=== PATIENT | female | born 1985 | race African-American/Black ===

== ENCOUNTER 2022-04-16 18:37 | Emergency (ER) | payer OTHER ==
[2022-04-16] MEDS ORDERED: KETOROLAC 30 MG/ML VIAL IM STA (19:05)
--- NOTE | 2022-04-16 19:05 | ED Physician Documentation ---
History of Present Illness - Stated complaint Stated Complaint: BACK & RIB PX - Chief complaint Chief Complaint: Back Pain - Additonal information Additional information: 36-year-old female presents emergency department for evaluation of 2 days of left flank and CVA pain. No history of similar in the past. No fevers dysuria urgency or frequency. No hematuria. Denies possibility of . She does have a history of low back pain but this feels different. She has had no falls or trauma, rash or fevers. Patient has taken Tylenol and Motrin without relief of symptoms. Review of Systems Constitutional: denies: Fever, Chills Eyes: reports: Reviewed and negative Nose: reports: Reviewed and negative Throat: reports: Reviewed and negative Cardiac: reports: Reviewed and negative GI: reports: Reviewed and negative : reports: Reviewed and negative Skin: reports: Reviewed and negative Musculoskeletal: reports: Back pain PD PAST MEDICAL HISTORY - Present Medications Home Medications: Ambulatory Orders Medication Instructions Recorded Confirmed methocarbamoL [Methocarbamol] 750 mg PO BID PRN #15 tablet 04/16/22 - Allergies Allergies/Adverse Reactions: Allergies Allergy/AdvReac Type Severity Reaction Status Date / Time No Known Drug Allergies Allergy Verified 04/16/22 18:40 PD ED PE NORMAL - General General: Alert and oriented X 3, No acute distress, Well developed/nourished - HEENT HEENT: Atraumatic, Ears normal - Neck Neck: Supple, no meningeal sign, No adenopathy, No JVD - Cardiac Cardiac: RRR, No murmur - Respiratory Respiratory: No respiratory distress - Abdomen Abdomen: Normal bowel sounds, Soft. No: Non tender (Mild left flank tenderness. Mild percussion tenderness over the left CVA. No rash erythema or swelling. No midline thoracic or lumbar tenderness elicited) - Back Back: No spinal TTP. No: No CVA TTP (Left CVA) - Derm Derm: Normal color, Warm and dry - Extremities Extremities: No deformity, No tenderness to palpate, Normal ROM s pain - Neuro Neuro: Alert and oriented X 3, costume draper 2-12 intact Eye Opening: Spontaneous Motor: Obeys Commands Verbal: Oriented GCS Score: 15 - Psych Psych: Normal mood Results - Vitals Vitals: Vital Signs - 24 hr 04/16/22 18:40 Temperature 36.5 C Heart Rate 90 Respiratory 16 Rate Blood Pressure 146/88 H O2 Saturation 100 Oxygen O2 Source Room air - Labs Labs: Laboratory Tests 04/16/22 04/16/22 04/16/22 18:48 18:48 19:19 WBC 5.8 RBC 4.55 Hgb 13.4 Hct 41.6 MCV 91.4 MCH 29.5 MCHC 32.2 RDW 13.3 Plt Count 215 MPV 11.7 H Neut # (Auto) 2.9 Lymph # (Auto) 2.2 [place] # (Auto) 0.7 Eos # (Auto) 0.1 Baso # (Auto) 0.0 Absolute Nucleated RBC 0.00 Nucleated RBC % 0.0 Sodium Potassium Chloride Carbon Dioxide Anion Gap BUN Creatinine Estimated GFR (MDRD) Glucose Calcium Total Bilirubin AST ALT Alkaline Phosphatase Total Protein Albumin Globulin Albumin/Globulin Ratio Lipase Urine Color YELLOW Urine Clarity CLEAR Urine pH 6.0 Ur Specific [place] >=1.030 H Urine Protein NEGATIVE Urine Glucose (UA) NEGATIVE Urine Ketones NEGATIVE Urine Occult Blood NEGATIVE Urine Nitrite NEGATIVE Urine Bilirubin NEGATIVE Urine Urobilinogen 0.2 (NORMAL) Ur Leukocyte Esterase NEGATIVE Urine RBC None Seen Urine WBC 0-3 Ur Squamous Epith Cells FEW Squamous Urine Bacteria Few Urine HCG, Qual NEGATIVE 04/16/22 19:19 WBC RBC Hgb Hct MCV MCH MCHC RDW Plt Count MPV Neut # (Auto) Lymph # (Auto) [place] # (Auto) Eos # (Auto) Baso # (Auto) Absolute Nucleated RBC Nucleated RBC % Sodium 139 Potassium 4.3 Chloride 103 Carbon Dioxide 29 Anion Gap 7.0 BUN 20 Creatinine 1.0 Estimated GFR (MDRD) 63 L Glucose 111 H Calcium 8.9 Total Bilirubin 0.4 AST 14 ALT 13 Alkaline Phosphatase 71 Total Protein 7.8 Albumin 3.8 Globulin 4.0 Albumin/Globulin Ratio 1.0 Lipase 47 Urine Color Urine Clarity Urine pH Ur Specific [place] Urine Protein Urine Glucose (UA) Urine Ketones Urine Occult Blood Urine Nitrite Urine Bilirubin Urine Urobilinogen Ur Leukocyte Esterase Urine RBC Urine WBC Ur Squamous Epith Cells Urine Bacteria Urine HCG, Qual - Rads (name of study) CT abd Radiology: Final report received (Negative for kidney stones or obstructive uropathy. An IUD can be seen which appears somewhat low-lying. This may be on the basis of fibroids however when clinically appropriate please consider follow-up pelvic ultrasound.) PD MEDICAL DECISION MAKING - ED course Complexity details: reviewed results, re-evaluated patient, considered differential, d/w patient ED course: 36-year-old female presents emergency department for evaluation of left flank an d CVA tenderness. Symptoms began about 48 hours ago. She had no relief with Tylenol at home. No fevers, vomiting hematuria or dysuria. Her screening labs showed no acute worrisome findings. Specifically no findings of infection or hematuria in her urine. Noncontrast CT did not show any findings of obstruction or nephroliths. We do note a low-lying IUD which may be secondary to fibroids. This was discussed with the patient she will follow-up with PCP as an outpatient to consider an ultrasound. Patient was given Toradol here in the emergency department with moderate relief of her symptoms. Patient is advised to take ibuprofen 600 mg with food 2-3 times a day. Will return to the ER for worsening symptoms, fevers hematuria or uncontrolled vomiting Departure - Departure Disposition: 01 Home, Self Care Clinical Impression: Acute left flank pain Condition: Stable Record reviewed to determine appropriate education?: Yes Prescriptions: methocarbamoL [Methocarbamol] 750 mg PO BID PRN #15 tablet PRN Reason: Spasms Comments: You were seen today for pain in the left side of your around your kidney area. Your screening labs and urine did not show any worrisome findings. The CT of your abdomen pelvis completed without contrast did not show anything to suggest obstruction or kidney stones. You were given a dose of Toradol which is an injectable form of a medication like ibuprofen. This has improved your symptoms. I recommend that you take 600 mg of ibuprofen with food 2-3 times a day. Gentle stretching or warm compress may also be helpful. I am sending a prescription for a limited amount of methocarbamol to the [facility] in [place]. This is a muscle relaxer. If your symptoms are not better, you develop fevers, have uncontrolled vomiting then please return to the ER for second evaluation
[2022-04-16 19:15] LABS: BILIRUBIN,URINE NEGATIVE (NEGATIVE); GLUCOSE, URINE (UA) NEGATIVE (NEGATIVE); KETONES,URINE (UA) NEGATIVE (NEGATIVE); LEUKOCYTE ESTERASE, URINE NEGATIVE (NEGATIVE); NITRITE,URINE NEGATIVE (NEGATIVE); OCCULT BLOOD,URINE NEGATIVE (NEGATIVE); PROTEIN,URINE NEGATIVE (NEGATIVE); UROBILINOGEN,URINE 0.2 (NORMAL) E.U./dL (NORMAL)
[2022-04-16 19:17] LABS: HCG UR QUAL NEGATIVE
[2022-04-16 19:19] LABS: CLARITY,URINE CLEAR (CLEAR)
[2022-04-16 19:23] LABS: BACTERIA,URINE Few /HPF (None Seen); RBC,URINE None Seen /HPF (0-5); SQUAMOUS EPITHELIAL CELL,UR FEW Squamous (<= Few); WBC,URINE 0-3 /HPF (0-5)
[2022-04-16 19:25] LABS: BASOPHILS % (AUTO) 0.2 %; EOSINOPHILS # (AUTO) 0.1 10^3/uL (0.0-0.7); EOSINOPHILS % (AUTO) 0.9 %; HCT - HEMATOCRIT 41.6 % (37.0-47.0); HGB - HEMOGLOBIN 13.4 g/dL (12.0-16.0); LYMPHOCYTES # (AUTO) 2.2 10^3/uL (1.5-3.5); LYMPHOCYTES % (AUTO) 37.7 %; MEAN CORPUSCULAR HEMOGLOBIN 29.5 pg (27.0-31.0); MEAN CORPUSCULAR HGB CONC 32.2 g/dL (32.0-36.0); MEAN CORPUSCULAR VOLUME 91.4 fL (81.0-99.0); MEAN PLATELET VOLUME 11.7 fL (7.9-10.8); MONOCYTES # (AUTO) 0.7 10^3/uL (0.0-1.0); MONOCYTES % (AUTO) 11.2 %; NEUTROPHILS # (AUTO) 2.9 10^3/uL (1.5-6.6); NEUTROPHILS % (AUTO) 49.7 %; PLT - PLATELET COUNT 215 10^3/uL (130-450); RED BLOOD COUNT 4.55 10^6/uL (4.20-5.40); RED CELL DISTRIBUTION WIDTH 13.3 % (12.0-15.0); WHITE BLOOD COUNT 5.8 x10^3/uL (4.8-10.8)
[2022-04-16 19:39] LABS: ALBUMIN 3.8 g/dL (3.2-5.5); BILIRUBIN,TOTAL 0.4 mg/dL (0.2-1.0); CALCIUM 8.9 mg/dL (8.5-10.3); POTASSIUM 4.3 mmol/L (3.5-5.0); TOTAL PROTEIN 7.8 g/dL (6.7-8.2)
--- NOTE | 2022-04-16 19:49 | CT Report ---
PROCEDURE: Abdomen/Pelvis WO INDICATIONS: left flank pain TECHNIQUE: Noncontrast 5 mm thick sections acquired from the diaphragms to the symphysis. 5 mm coronal and sagi ttal reformats were then performed. For radiation dose reduction, the following was used: automated exposure control, adjustment of mA and/or kV according to patient size. COMPARISON: None. FINDINGS: Image quality: Excellent. ABDOMEN: Lung bases: Lung bases are clear. Heart size is normal. Solid organs: Liver and spleen are normal in size. Gallbladder is not definitely seen. Pancreas is normal in contours. No adrenal nodules. Kidneys are normal in size, without hydronephrosis or neph rolithiasis. Peritoneum and bowel: Unenhanced bowel loops demonstrate normal wall thickness and caliber. No free fluid or air. Nodes and vessels: No retroperitoneal or mesenteric adenopathy by size criteria. Aorta and inferior vena cava are normal in caliber. Miscellaneous: No ventral hernias. PELVIS: Genitourinary: Bladder wall thickness is normal. The uterus demonstrates an unremarkable appearance for age. No adnexal masses are seen. An IUD is seen, which appears somewhat low lying. Miscellaneous: No inguinal hernias or adenopathy. Bones: No suspicious bony lesions. No vertebral body compression fractures. IMPRESSION: Negative for kidney stones or obstructive uropathy. An IUD can be seen, which appears somewhat low-lying. This may be on the basis of fibroids, however. When clinically appropriate, please consider a follow-up pelvic ultrasound for further evaluation. Reviewed by: Kris Campa MD on 04/16/2022 6:47 PM [facility] Approved by: Kris Campa MD on 04/16/2022 6:47 PM Y[facility] Station ID: [id number]
[2022-04-16 20:07] VITALS: BP 124/82
== END 2022-04-16 20:05 | disposition home or self-care (01) ==
LOC: ED 18:37
DX: R10.9 Unspecified abdominal pain (principal)
CPT/HCPCS: 36415; 80053; 81001; 81025; 83690; 85025; 96372; 99282; 99284

== ENCOUNTER 2023-11-14 09:45 | Outpatient (CLI) | payer OTHER ==
--- NOTE | 2023-11-14 13:03 | XRAY Report ---
PROCEDURE: Lumbar Spine 2-3V INDICATIONS: UNSPECIFIED LOW BACK PAIN TECHNIQUE: 2 views of the lumbar spine were acquired. COMPARISON: None. FINDINGS: Bones: Mild degenerative changes, with particular disc space height loss at L5-S1. Minimal facet arth ropathy and osteophytes. Vertebral body heights are well-maintained. No spondylolisthesis. Soft tissues: Partially seen IUD. No suspicious calcifications. IMPRESSION: No acute radiographic abnormality. Minimal spondylotic changes, particularly with disc space height l oss at L5-S1. If there is high concern for further derangement, consider MRI evaluation. Reviewed by: Theodore Monteiro MD on 11/14/2023 1:02 PM PST Approved by: Theodore Monteiro MD on 11/14/2023 1:02 PM PST Station ID: [id number]
== END 2023-11-14 10:00 | disposition home or self-care (01) ==
LOC: DI.N 09:45
PROVIDERS: ATTEND Nurse Practitioner
DX: M47.817 Spondylosis without myelopathy or radiculopathy, lumbosacral region (principal); M47.816 Spondylosis without myelopathy or radiculopathy, lumbar region